=== PATIENT | female | born 1940 | race Caucasian/White ===

== ENCOUNTER → 2023-05-19 | Outpatient (CLI) | payer MEDICARE, SELFPAY ==
--- NOTE | 2023-05-19 | DI.RAD.S_ITS ---
PROCEDURE: XR DEXA AXIAL SKELETON INDICATIONS: OSTEOPOROSIS SCREENING COMPARISON: None. FINDINGS: This blank DEXA report has been sent in error by the PACS system. The correct and complete report will be forthcoming in 1-2 days. Thank you for your patience and understanding. Dictated by: Luis Phelps M.D. on 05/19/2023 at 15:36 Approved by: Luis Phelps M.D. on 05/19/2023 at 15:36
--- NOTE | 2023-05-19 11:43 | DI.DEXA.S_ITS ---
Bone Density Report Name: RYAN VICKERS Age: 82 Sex: Female Ethnicity: White Date of : 1940 Indication: postmenopausal; screening for osteoporosis; Referring Provider: JENAE FREITAS Study: Bone densitometry was performed. Exam Date: May 19, 2023 Accession number: [id number] Bone Density: Region BMD T-score Z-score Classification AP Spine(L1-L4) 1.117 0.6 3.4 Normal Femoral Neck (Left) 0.708 -1.3 1.1 Osteopenia Total Hip (Left) 0.899 -0.4 1.8 Normal Femoral Neck (Right) 0.712 -1.2 1.1 Osteopenia Total Hip (Right) 0.890 -0.4 1.7 Normal Total Hip Mean 0.894 -0.4 1.8 Normal World Health Organization criteria for BMD impression classify patients as: Normal (T-score at or above -1.0), Osteopenia (T-score between -1.0 and -2.5), or Osteoporosis (T-score at or below -2.5). 10-year Fracture Risk(1): Major Osteoporotic Fracture 12% Hip Fracture 4.2% Reported Risk Factors: [place] (), Neck BMD=0.708, BMI=23.1, smoking (1) FRAX(R) Version 3.08. Fracture probability calculated for an untreated patient. Fracture probability may be lower if the patient has received treatment. Impression: The patient has low bone mass, based on the Left Femoral Neck T-score. The patient has an estimated ten-year risk of hip fracture of 4.2% and an estimated ten-year risk of major fracture of 12%, based on the WHO FRAX algorithm. The patient has risk factors, including: smoking. Discussion: BONE DENSITY IS LOW AT ONE OR MORE SKELETAL SITES. THE PATIENT'S BMD AND CLINICAL RISK FACTORS CONTRIBUTE TO THIS PATIENT'S INCREASED RISK OF FRACTURE. This patient's lowest T-score is low at one or more skeletal sites. It meets the World Health Organization's (WHO) criteria for ?low bone mass? (T-score between -1.0 and -2.5). The patient's 10-year risk of hip fracture as calculated by FRAX exceeds the threshold where pharmacological therapy is recommended by the National Osteoporosis Foundation (NOF). However, all treatment decisions require clinical judgment and consideration of individual patient factors, including patient preferences, comorbidities, previous drug use, risk factors not captured in the FRAX model (e.g., frailty, falls, vitamin D deficiency, increased bone turnover, interval significant decline in bone density) and possible under or overestimation of fracture risk by FRAX. The patient should follow a healthful lifestyle (good nutrition with adequate calcium and vitamin D, and appropriate weight-bearing exercise). Follow-Up: Consider a repeat BMD and Vertebral Fracture Assessment (VFA) exam in 2 years or sooner if medically necessary, to reassess this patient's status. Reported by: MARILUZ WALTER M.D. on 05/19/2023 11:51:00 PM.
== END ==
LOC: RAD 11:19
PROVIDERS: PCP Student in an Organized Health Care Education/Training Program; Referring Provider Student in an Organized Health Care Education/Training Program; Visit Provider Student in an Organized Health Care Education/Training Program
DX: M85.852 Other specified disorders of bone density and structure, left thigh (principal); Z78.0 Asymptomatic menopausal state
CPT/HCPCS: 77080

== ENCOUNTER 2023-11-26 13:42 | Observation (INO) | payer MEDICARE, SELFPAY ==
[2023-11-26] VITALS (14 sets, daily range): BP systolic 146–192; BP diastolic 63–90; PULSE 69–94; RESP 14–27; TEMP 35.9–36.6; O2SAT 91–99; BMI 25.7; BMI 24.5
--- NOTE | 2023-11-26 13:52 | ED_ITS ---
HPI - Neuro Symptoms/Deficit General Chief Complaint: Neuro Symptoms/Deficit Stated Complaint: thinks is having a stroke Time Seen by Provider: 11/26/23 13:51 History of Present Illness HPI Narrative: Patient 83-year-old female without significant past medical history presenting today with difficulty word finding. Last known well was around 1:00 p.m.. Has been noticed it as well. No slurring of speech or facial droop. She denies any other focal deficits without numbness tingling or weakness. She is report that she has dizziness regularly has some vertigo she takes meclizine for it. She was experiencing some vertigo that has never really had any speech difficulty. She feels like she is getting better she thinks that she may have had a TIA. She denies any other symptoms including chest pain palpitations fever chills or abdominal pain. Related Data Home Medications Medication Instructions Recorded Confirmed alprazolam 0.5 mg tablet 0.25 - 0.5 mg PO Q6H PRN anxiety 11/26/23 11/26/23 benzonatate 100 mg capsule 200 mg PO 3XD PRN cough 11/26/23 11/26/23 carvedilol 3.125 mg tablet 3.125 mg PO Q12H 11/26/23 11/26/23 estradiol 2 mg tablet 2 mg PO DAILY 11/26/23 11/26/23 levothyroxine 75 mcg tablet 75 mcg PO DAILY 11/26/23 11/26/23 (Synthroid) losartan 25 mg tablet 25 mg PO DAILY 11/26/23 11/26/23 meclizine 25 mg tablet 50 mg PO DAILY PRN dizziness 11/26/23 11/26/23 Allergies Allergy/AdvReac Type Severity Reaction Status Date / Time grass pollen Allergy Verified 11/26/23 15:56 Patient History Social History household members: significant other Smoking Status: Never smoker alcohol intake: never Exam Initial Vital Signs Initial Vital Signs: Vital Signs Temperature 97.8 F 11/26/23 13:45 Pulse Rate 73 11/26/23 13:45 Respiratory Rate 16 11/26/23 13:45 Blood Pressure 192/90 H 11/26/23 13:45 Pulse Oximetry 98 11/26/23 13:45 Oxygen Delivery Method Room Air 11/26/23 13:45 GENERAL: Alert pleasant in 3-year-old female and in no acute distress. HEENT: Head atraumatic,EOMI, pupils reactive, face symmetric, moist mucous membranes CARDIOVASCULAR: Regular rate and rhythm without murmurs, rubs or gallops. RESPIRATORY: Breath sounds equal bilaterally, no wheezes rales or rhonchi. ABDOMEN: Soft, nontender. Normoactive bowel sounds all 4 quadrants. No guarding or rebound. EXTREMITIES: Normal range of motion, no clubbing or edema. Neurovascularly intact NEUROLOGICAL: Alert and oriented x4.Normal gait and speech. Cranial nerves II through XII grossly intact. Good [id number], good wkod-[id number], strength equal bilaterally, no dysarthria or aphasia, sensation in tact to soft touch bilaterally, no visual changes, no facial droop SKIN: Warm, dry, no laceration, no petechiae, no rashes or lesions. Scores ABCD2 Age >= 60 years: yes Initial BP. Either SBP >= 140 or DBP >= 90.: yes Clinical features of the TIA: speech disturbance without weakness Duration of symptoms: 10-59 minutes History of diabetes: no ABCD2 Score: 4 NIH Stroke Scale Level of Conciousness: Alert, keenly responsive Ask month/age: Answers both questions correctly. Open/close eyes, close hand: Performs both tasks correctly Best gaze horizontal: Normal Visual bacon: No visual loss Facial palsy: Normal symetrical movement Left arm drift: No drift for full 10 sec Right arm drift: No drift for full 10 sec Left leg drift: No drift for full 5 sec Right leg drift: No drift for full 5 sec Limb ataxia: Absent Sensory on face/arms/legs: Normal, no sensory loss Best language: No aphasia, normal Dysarthria: Normal Extinction or inattention: No abnormality Total NIH Stroke scale score: 0 Course Orders Ordered: ED Orders 11/26/23 13:48 Complete Blood Count AUTO DIFF Stat Comprehensive Metabolic Panel Stat Ethanol (ETOH) Stat PTT Partial Thromboplastin Junior Stat Prothrombin Time INR Stat Troponin & CK Cardiac Panel Stat 11/26/23 13:[address] angio head and neck Stat 11/26/23 13:59 EKG-12 Lead Stat 11/26/23 14:17 COVID19 -Nasal RAPID Stat 11/26/23 14:27 Urinalysis and Microscopic Stat Urine Drug Screen, Rapid Stat 11/26/23 15:36 MR head/brain wo con Stat 11/27/23 05:00 Basic Metabolic Panel DAILY Complete Blood Count AUTO DIFF DAILY Hemoglobin A1C% w Est Avg Glu Routine Lipid Panel Routine Magnesium DAILY TSH w/ Reflex to FT4 Routine 11/28/23 05:00 Basic Metabolic Panel DAILY Complete Blood Count AUTO DIFF DAILY Magnesium DAILY 11/29/23 05:00 Basic Metabolic Panel DAILY Complete Blood Count AUTO DIFF DAILY Magnesium DAILY Acetaminophen (Acetaminophen 325 Mg Tablet) 650 mg PO Q6H PRN PRN Reason: Fever/Mild Pain (1-3) Naloxone HCl (Naloxone 0.4 Mg/Ml Vial) 0.2 mg IV Q2MIN PRN PRN Reason: Opiate Reversal Discontinued Medications Aspirin (Aspirin 81 Mg Chew Tab) 324 mg PO NOW ONE Stop: 11/26/23 15:37 Last Admin: 11/26/23 15:50 Dose: 324 mg Documented By: HEIDY Vital Signs Vital signs: Vital Signs - 8 hr 11/26/23 13:45 11/26/23 14:29 11/26/23 14:30 Temperature 97.8 F Pulse Rate 73 80 78 Respiratory Rate 16 24 18 Blood Pressure 192/90 H Pulse Oximetry 98 95 99 Oxygen Delivery Method Room Air 11/26/23 14:33 11/26/23 14:33 11/26/23 15:00 Temperature Pulse Rate 77 69 Respiratory Rate 25 H Blood Pressure 183/78 H Pulse Oximetry 98 98 Oxygen Delivery Method 11/26/23 15:01 11/26/23 15:01 11/26/23 15:30 Temperature Pulse Rate 70 70 Respiratory Rate Blood Pressure 169/72 H Pulse Oximetry 98 98 Oxygen Delivery Method 11/26/23 15:30 11/26/23 16:02 11/26/23 16:06 Temperature Pulse Rate 94 H Respiratory Rate 27 H Blood Pressure 171/73 H 171/74 H Pulse Oximetry 91 Oxygen Delivery Method 11/26/23 16:06 11/26/23 16:30 11/26/23 16:30 Temperature Pulse Rate 73 87 Respiratory Rate 14 Blood Pressure 146/65 H Pulse Oximetry 99 96 Oxygen Delivery Method 11/26/23 16:52 Temperature Pulse Rate Respiratory Rate Blood Pressure Pulse Oximetry 96 Oxygen Delivery Method Room Air MDM - Neuro Symptoms/Deficit Lab Data 11/26/23 13:48 11/26/23 13:48 Labs: Lab Results 11/26/23 11/26/23 11/26/23 Range/Units 13:48 14:17 14:27 WBC 6.0 (4.5-11.0) X10^3/uL RBC 3.68 L (4.0-5.2) X10^6/uL Hgb 12.6 (12.0-16.0) g/dL Hct 36.9 (36-46) % MCV 100.2 H (80-100) fL MCH 34.3 H (26-34) PG MCHC 34.2 (30-36) % RDW 13.2 (11.6-14.8) % Plt Count 212 (150-400) X10^3/uL Neut % (Auto) 54.1 (50-75) % Lymph % (Auto) 29.0 (25-40) % [place] % (Auto) 10.8 (3-14) % Eos % (Auto) 5.3 H (2-4) % Baso % (Auto) 0.8 (0-2) % Neut # (Auto) 3200 (7487-9370) /uL Lymph # (Auto) 1700 (1199-7553) /uL [place] # (Auto) 600 (0-900) /uL Eos # (Auto) 300 (0-450) /uL Baso # (Auto) 0 (0-100) /uL PT 10.2 (9.4-12.5) SECONDS INR 0.9 (0.9-1.3) APTT 28 (25.1-36.5) SECONDS Sodium 131 L (137-145) mmol/L Potassium 4.1 (3.4-5.1) mmol/L Chloride 97 L (98-107) mmol/L Carbon Dioxide 25 (22-32) mmol/L BUN 11 (7-17) mg/dL Creatinine 0.66 (0.52-1.04) mg/dL Estimated GFR > 60 (>60) mL/min BUN/Creatinine Ratio 16.7 (6-22) Glucose 92 (80-110) mg/dL Calcium 9.1 (8.4-10.2) mg/dL Total Bilirubin 0.5 (0.2-1.3) mg/dL AST 34 (14-36) IU/L ALT 23 (<35) IU/L Alkaline Phosphatase 69 (38-126) U/L Total Creatine Kinase 34 (30-135) U/L Troponin I < 0.012 (0.01-0.034) ng/mL Total Protein 7.1 (6.3-8.2) g/dL Albumin 4.4 (3.5-5.0) g/dL Globulin 2.7 (1.7-4.1) g/dL Albumin/Globulin Ratio 1.6 (1.0-2.8) Urine Color Yellow Urine Appearance Clear Urine pH 5.0 (4.5-8.0) Ur Specific [place] <=1.005 (1.000-1.035) Urine Protein Negative (Negative) Urine Glucose (UA) Negative (Negative) g/dL Urine Ketones Negative (NEGATIVE) Urine Occult Blood Negative (Negative) Urine Nitrate Negative (Negative) Urine Bilirubin Negative (NEGATIVE) Urine Urobilinogen 0.2 (0.2) E.U./dL Ur Leukocyte Esterase Negative (NEGATIVE) Urine RBC None seen (0-5/HPF) Urine WBC None seen (0-5/HPF) Ur Squamous Epith Cells None seen (0-5/HPF) Urine Bacteria None seen (None) Ur Culture Indicated? Cult not indicated Vol Urine Centrifuged 10ml (spun) U Opiates 300ng/mL cut Negative (Negative) Ur Oxycodone Screen Negative (Negative) Urine Methadone Screen Negative (Negative) Ur Barbiturates Screen Negative (Negative) U Tricyclic Antidepress Negative (Negative) Ur Phencyclidine Scrn Negative (Negative) Ur Amphetamines Screen Negative (Negative) U Methamphetamines Scrn Negative (Negative) Ur MDMA Scrn (Ecstasy) Negative (Negative) U Benzodiazepines Scrn Negative (Negative) Urine Cocaine Screen Negative (Negative) U Marijuana (THC) Screen Negative (Negative) Urine Specific [place] (Normal) Ethyl Alcohol < 10 ( - 10) mg/dL Ur Creatinine (Normal) SARS-CoV-2 (PCR) Negative (Negative) 11/26/23 Range/Units 14:27 WBC (4.5-11.0) X10^3/uL RBC (4.0-5.2) X10^6/uL Hgb (12.0-16.0) g/dL Hct (36-46) % MCV (80-100) fL MCH (26-34) PG MCHC (30-36) % RDW (11.6-14.8) % Plt Count (150-400) X10^3/uL Neut % (Auto) (50-75) % Lymph % (Auto) (25-40) % [place] % (Auto) (3-14) % Eos % (Auto) (2-4) % Baso % (Auto) (0-2) % Neut # (Auto) (3850-6021) /uL Lymph # (Auto) (1075-8558) /uL [place] # (Auto) (0-900) /uL Eos # (Auto) (0-450) /uL Baso # (Auto) (0-100) /uL PT (9.4-12.5) SECONDS INR (0.9-1.3) APTT (25.1-36.5) SECONDS Sodium (137-145) mmol/L Potassium (3.4-5.1) mmol/L Chloride (98-107) mmol/L Carbon Dioxide (22-32) mmol/L BUN (7-17) mg/dL Creatinine (0.52-1.04) mg/dL Estimated GFR (>60) mL/min BUN/Creatinine Ratio (6-22) Glucose (80-110) mg/dL Calcium (8.4-10.2) mg/dL Total Bilirubin (0.2-1.3) mg/dL AST (14-36) IU/L ALT (<35) IU/L Alkaline Phosphatase (38-126) U/L Total Creatine Kinase (30-135) U/L Troponin I (0.01-0.034) ng/mL Total Protein (6.3-8.2) g/dL Albumin (3.5-5.0) g/dL Globulin (1.7-4.1) g/dL Albumin/Globulin Ratio (1.0-2.8) Urine Color Urine Appearance Urine pH Normal (4.5-8.0) Ur Specific [place] (1.000-1.035) Urine Protein (Negative) Urine Glucose (UA) (Negative) g/dL Urine Ketones (NEGATIVE) Urine Occult Blood (Negative) Urine Nitrate (Negative) Urine Bilirubin (NEGATIVE) Urine Urobilinogen (0.2) E.U./dL Ur Leukocyte Esterase (NEGATIVE) Urine RBC (0-5/HPF) Urine WBC (0-5/HPF) Ur Squamous Epith Cells (0-5/HPF) Urine Bacteria (None) Ur Culture Indicated? Vol Urine Centrifuged U Opiates 300ng/mL cut (Negative) Ur Oxycodone Screen (Negative) Urine Methadone Screen (Negative) Ur Barbiturates Screen (Negative) U Tricyclic Antidepress (Negative) Ur Phencyclidine Scrn (Negative) Ur Amphetamines Screen (Negative) U Methamphetamines Scrn (Negative) Ur MDMA Scrn (Ecstasy) (Negative) U Benzodiazepines Scrn (Negative) Urine Cocaine Screen (Negative) U Marijuana (THC) Screen (Negative) Urine Specific [place] Normal (Normal) Ethyl Alcohol ( - 10) mg/dL Ur Creatinine Normal (Normal) SARS-CoV-2 (PCR) (Negative) Imaging Data CT scan - head: Radiologist's Impression: PROCEDURE: CT STROKE INDICATIONS: difficulty speaking TECHNIQUE: Noncontrast 4.5 mm thick angled axial sections acquired from the foramen magnum to the vertex, with coronal reformats. For radiation dose reduction, the following was used: automated exposure control, adjustment of mA and/or kV according to patient size. COMPARISON: None. FINDINGS: Image quality: Diagnostic. CSF spaces: Basal cisterns are patent. No extra-axial fluid collections. The ventricles are symmetric in size and shape. Brain: No intracranial bleeds or masses. There is cerebral volume loss for age, with resultant ventricular and sulcal prominence. There are periventricular and deep white matter chronic small vessel ischemic changes. There is intracranial internal carotid artery atherosclerosis. Skull and face: Calvarium and visualized facial bones appear intact, without suspicious lesions. Sinuses: Visualized sinuses and mastoids are clear. IMPRESSION: No acute intracranial hemorrhage is seen. No acute intracranial pathology. Note: Case discussed by telephone with Dr. Pepe at 2:10 p.m. [place] time on November 26, 2023. This study fulfills neurological imaging criteria for inclusion or exclusion of acute stroke therapies based on available published neurological guidelines. Dictated by: Lyndon Chavarria M.D. on 11/26/2023 at 13:09 CTA - brain/neck: Radiologist's Impression: PROCEDURE: CT ANGIO HEAD AND NECK INDICATIONS: difficulty speech TECHNIQUE: After the administration of intravenous contrast, 1 mm thick sections acquired from the aortic arch through the [place]. 3-dimensional onzbnzb-wszaebkpm-pnozlqfjcq (MIP) and/or volume rendering reformats were acquired of the central intracranial vasculature and neck separately. For radiation dose reduction, the following was used: automated exposure control, adjustment of mA and/or kV according to patient size. COMPARISON: [facility], CT, CT STROKE, 11/26/2023, 14:02. FINDINGS: Image quality: Diagnostic. BRAIN: CSF spaces: Ventricles are normal in size and shape. Basal cisterns are patent. No extra-axial fluid collections. Brain: No significant abnormality of the brain can be seen. Skull and face: Calvarium and facial bones appear intact, without suspicious lesions. Orbits appear normal. Sinuses: Sinuses and mastoids are clear. HEAD CT ANGIOGRAPHY: Anterior circulation: Intracranial internal carotid arteries are normal in size and flow. The flow within the paired anterior cerebral arteries is normal and symmetric. The flow within the middle cerebral arteries is normal and symmetric. The anterior communicating artery is seen. No aneurysms are seen. Posterior circulation: Visualized portions of the vertebral arteries demonstrate normal caliber, and join to form a normal appearing basilar artery. Flow within the posterior cerebral arteries is normal and symmetric. No aneurysms are seen. NECK CT ANGIOGRAPHY: Carotid system: The great vessels demonstrate a conventional anatomy as they arise from the aortic arch. The origins of the common carotid arteries appear patent. The common carotid arteries demonstrate normal caliber and courses. The bifurcation regions are both widely patent. The internal carotid arteries demonstrate normal calibers and courses. Posterior circulation: The origins of the vertebral arteries both appear widely patent. The more superior extracranial portions of both vertebral arteries also demonstrate normal courses and calibers. They join to form a normal appearing basilar artery. Soft tissues: Visualized neck soft tissues demonstrate no suspicious abnormalities. Bones: No suspicious bony lesions. Visualized cervical spine appears normally aligned. IMPRESSION: No significant intracranial arterial abnormality is seen. No significant abnormality is seen within the arteries of the neck. Any quantitative measurements of stenosis were performed using NASCET criteria. Dictated by: Braulio Arevalo M.D. on 11/26/2023 at 14:23 ECG Data Attestation: I personally reviewed and interpreted this ECG as follows: Prior ECG tracings: not available for review Interpretation: Normal sinus rhythm rate 78 [place] interval 172 QRS 70 QTC 440 no ischemic changes no priors to compare MDM Narrative Medical decision making narrative: Patient 83-year-old female presents today concern for TIA versus CVA. She is having some speech difficulty which I do appreciate on exam she is able to answer all my questions. NIH stroke scale of 0 Initial ABCD2 score of 4. Patient's symptoms are improving she has therefore not a candidate for TNK Blood work has been reviewed no significant leukocytosis or anemia, sodium is 131 potassium 4.1 chloride 97 carbon dioxide 25 BUN 11 creatinine 0.6 glucose 92, bilirubin 0.5 AST 34 ALT [address] imaging reviewed no acute large vessel occlusion or intracranial hemorrhage noted EKG reviewed as above Patient's symptoms are improved she says that she is overall feeling significantly better. Symptoms lasted for an hour. Definitely reports having trouble remembering passwords and difficulty speaking or has been she was not getting right words out. Concern is for a TIA. She has an elevated ABCD2 score. She was given an aspirin Dr. Larson accepts patient [facility] Stroke Severity Scale (-SSS) from [facility] on 11/26/2023 All calculations should be rechecked by clinician prior to use RESULT SUMMARY: 0 points LVO and NIHSS >=5 less likely. INPUTS: Conjugate gaze deviation ?> 0 = No Ask patient age and current month ?> 0 = Both correct Ask patient to close eyes and open/close hand ?> 0 = Follows both commands Instruct patient to hold arm (either or both) up for 10 seconds ?> 0 = Can do Discharge Plan Departure Patient Disposition: Admitted as Observation Clinical Impression: Transient cerebral ischemia Admit Date/Time: 11/26/23 16:59 Admit Provider: Landon Larson
[2023-11-26 14:12] LABS: Add Manual Diff / Slide Review NO; Basophils Absolute Auto 0 /uL (0-100); Basophils Percent Auto 0.8 % (0-2); Eosinophils Absolute Auto 300 /uL (0-450); Eosinophils Percent Auto 5.3 % (2-4); Hematocrit 36.9 % (36-46); Hemoglobin 12.6 g/dL (12.0-16.0); Lymphocytes Absolute Auto 1700 /uL (1100-4500); Mean Corpuscular HGB Conc 34.2 % (30-36); Mean Corpuscular Hemoglobin 34.3 PG (26-34); Mean Corpuscular Volume 100.2 fL (80-100); Monocytes Absolute Auto 600 /uL (0-900); Monocytes Percent Auto 10.8 % (3-14); Neutrophils Absolute Auto 3200 /uL (1500-7000); Neutrophils Percent Auto 54.1 % (50-75); Platelet Count 212 X10^3/uL (150-400); Red Blood Cell Count 3.68 X10^6/uL (4.0-5.2); Red Cell Distribution Width 13.2 % (11.6-14.8)
[2023-11-26 14:13] LABS: INR 0.9 (0.9-1.3); Prothrombin Time 10.2 SECONDS (9.4-12.5)
--- NOTE | 2023-11-26 14:13 | PC.NURSE ---
patient was working on her computer and then suddenly had trouble finding words. She is also dizzy. She normally has dizzyness in the morning which resolves over time. She also take meclizine for vertigo but says that this is worse than normal vertigo. Her word searching has improved.
[2023-11-26 14:16] LABS: PTT Partial Thromboplastin Tim 28 SECONDS (25.1-36.5)
[2023-11-26 14:19] LABS: Alanine Aminotransferase 23 IU/L (<35); Albumin 4.4 g/dL (3.5-5.0); Albumin Globulin Ratio 1.6 (1.0-2.8); Alkaline Phosphatase 69 U/L (38-126); Aspartate Aminotransferase 34 IU/L (14-36); BUN Creatinine Ratio 16.7 (6-22); Bilirubin Total 0.5 mg/dL (0.2-1.3); Blood Urea Nitrogen 11 mg/dL (7-17); Calcium 9.1 mg/dL (8.4-10.2); Carbon Dioxide 25 mmol/L (22-32); Chloride 97 mmol/L (98-107); Creatine Kinase 34 U/L (30-135); Estimated Glomerular Filt Rate > 60 mL/min (>60); Ethanol (ETOH) < 10 mg/dL; Globulin 2.7 g/dL (1.7-4.1); Glucose 92 mg/dL (80-110); HEMOLYSIS 23 (0-50); Potassium 4.1 mmol/L (3.4-5.1); Sodium 131 mmol/L (137-145); Total Protein 7.1 g/dL (6.3-8.2)
[2023-11-26 14:29] LABS: Troponin I < 0.012 ng/mL (0.01-0.034)
[2023-11-26 14:38] LABS: UR Morphine/Opiate cutoff 300 Negative (Negative); Ur Creatinine Normal (Normal); Ur Specific Gravity Normal (Normal); Urine Amphetamines Negative (Negative); Urine Barbiturates Negative (Negative); Urine Benzodiazepines Negative (Negative); Urine Cocaine Negative (Negative); Urine MDMA Negative (Negative); Urine Methadone Negative (Negative); Urine Methamphetamines Negative (Negative); Urine Oxycodone Negative (Negative); Urine Phencyclidine Negative (Negative); Urine Tetrahydrocannabinol Negative (Negative); Urine Tricyclic Antidepressant Negative (Negative); Urine pH Normal (Normal)
--- NOTE | 2023-11-26 14:42 | PC.NURSE ---
Patient complains of kliedoscope like vision changes that comes and goes and usually doesn't come back. Today she states that today it has come back more than once which is not normal. She states having a dx of trigeminal neuralgia and also an issue with her eye that contributes to her vision changes. She states that she does not have a headache but does have lightheadedness.
[2023-11-26 14:43] LABS: Appearance Urine UA CLEAR; Bilirubin Urine UA NEGATIVE (NEGATIVE); Color Urine UA YELLOW; Glucose Urine UA NEGATIVE (Negative); Ketones Urine UA NEGATIVE (NEGATIVE); Leukocyte Esterase Urine UA NEGATIVE (NEGATIVE); Nitrite Urine UA NEGATIVE (Negative); Occult Blood Urine UA NEGATIVE (Negative); Protein Urine UA NEGATIVE (Negative); Specific Gravity Urine UA <=1.005 (1.000-1.035); Urobilinogen Urine UA 0.2 E.U./dL (0.2)
[2023-11-26 14:46] LABS: Urine Volume 10mL (spun)
[2023-11-26 14:47] LABS: Bacteria Urine None Seen; Culture Indicated Urine Cult Not Indicated; RBC Urine None Seen (0-5/HPF); Squamous Epithelial Cell Urine None Seen (0-5/HPF); WBC Urine None Seen (0-5/HPF)
[2023-11-26 15:04] LABS: COVID19 -Nasal RAPID Negative (Negative)
--- NOTE | 2023-11-26 15:36 | DI.MRI.S_ITS ---
PROCEDURE: MR HEAD/BRAIN WO CON INDICATIONS: tia TECHNIQUE: Noncontrast axial T1 spin echo, axial T2 fast spin echo, sagittal and axial FLAIR, coronal T2 fast spin echo, axial gradient echo, axial diffusion and ADC through the brain. COMPARISON: CT noncontrast 11/26/2023, CT angio head and neck 11/26/2023. FINDINGS: Image quality: Diagnostic CSF Spaces: Basal cisterns are patent. No extra-axial fluid collections. Ventricles are normal in size and shape. Brain: No intracranial masses or hemorrhage. [place]/white matter interface is normal. Brainstem appears normal. Diffusion-weighted images demonstrate no acute infarct. No chronic ischemic insults. Normal intravascular flow voids are present. Skull and face: Calvarium has normal marrow signal. Orbits appear normal. Sinuses: Sinuses and mastoids are clear. IMPRESSION: No acute intracranial abnormality. Approved by: Izzy Day M.D.,Ph.D. on 11/26/2023 at 20:37
[2023-11-26] MEDS: ASPIRIN 81 MG CHEW TAB 324 MG PO (15:50)
--- NOTE | 2023-11-26 15:54 | PC.NURSE ---
patient states that when she live on the [facility] she took 3 different allergy shots. She was alergic to 6 different grasses and 2 trees. Since living in [place] has not had any issues.
--- NOTE | 2023-11-26 17:30 | P.HP_ITS ---
History of Present Illness History of Present Illness Date Patient Seen: 11/26/23 Time Patient Seen: 17:31 Chief complaint: thinks is having a stroke Narrative: 83 F with PMH of hypothyroidism, HTN, anxiety who presents after an episode of word finding dificulty, possibly slurred speech and left arm and leg tingling. Symptoms resolved quite quickly initially, but patient was concerned enough about her symptoms for a possible stroke so she came to the emergency room. Symptoms started around 12:30 pm, lasted a few minutes in total she thinks. She does note some palpitations occasionally at night, but denies recent fever chills, shortness of breath, nausea, vomiting. She does take estradiol, and has for many years. Also drinks a beer or more a day with occasional split bottle of wine as well. No prior shaking or withdrawal symptoms previously, she has been working to cut down. BP she states at home will run between 130 - 170. Had recent lab work done with new PCP with normal A1c, lipids, and TSH about a week ago. In the ER, patient was hypertensive, otherwise unremarkable vitals. Initial CT head and CT stroke protocol were unremarkable. Her symptoms have resolved at this time. Admitted for further monitoring and evaluation of TIA vs CVA. MRI pending this evening. [facility] Medical History (Updated 11/26/23 @ 18:00 by Landon Lasron DO) Hypothyroidism HTN (hypertension) Surgical History (Updated 11/26/23 @ 18:00 by Landon Larson DO) History of bilateral salpingo-oophorectomy (BSO) S/P DOROTEO (total abdominal hysterectomy) Social History (Updated 11/26/23 @ 18:01 by Landon Larson DO) household members: significant other Smoking Status: Former smoker alcohol intake: current substance use type: does not use Meds Home Medications and Allergies Home Medications Medication Instructions Recorded Confirmed Type alprazolam 0.5 mg tablet 0.25 - 0.5 mg PO Q6H PRN anxiety 11/26/23 11/26/23 History benzonatate 100 mg capsule 200 mg PO 3XD PRN cough 11/26/23 11/26/23 History carvedilol 3.125 mg tablet 3.125 mg PO Q12H 11/26/23 11/26/23 History estradiol 2 mg tablet 2 mg PO DAILY 11/26/23 11/26/23 History levothyroxine 75 mcg tablet 75 mcg PO DAILY 11/26/23 11/26/23 History (Synthroid) losartan 25 mg tablet 25 mg PO DAILY 11/26/23 11/26/23 History meclizine 25 mg tablet 50 mg PO DAILY PRN dizziness 11/26/23 11/26/23 History Allergies Allergy/AdvReac Type Severity Reaction Status Date / Time grass pollen Allergy Verified 11/26/23 15:56 Review of Systems Review of Systems Narrative: All other systems reviewed with the patient and are negative unless otherwise stated. Exam Vital Signs (past 8 hours): - 11/26/23 13:45 11/26/23 14:29 11/26/23 14:30 Temperature 97.8 F Pulse Rate 73 80 78 Respiratory Rate 16 24 18 Blood Pressure 192/90 H Pulse Oximetry 98 95 99 Oxygen Delivery Method Room Air 11/26/23 14:33 11/26/23 14:33 11/26/23 15:00 Temperature Pulse Rate 77 69 Respiratory Rate 25 H Blood Pressure 183/78 H Pulse Oximetry 98 98 Oxygen Delivery Method 11/26/23 15:01 11/26/23 15:01 11/26/23 15:30 Temperature Pulse Rate 70 70 Respiratory Rate Blood Pressure 169/72 H Pulse Oximetry 98 98 Oxygen Delivery Method 11/26/23 15:30 11/26/23 16:02 11/26/23 16:06 Temperature Pulse Rate 94 H Respiratory Rate 27 H Blood Pressure 171/73 H 171/74 H Pulse Oximetry 91 Oxygen Delivery Method 11/26/23 16:06 11/26/23 16:30 11/26/23 16:30 Temperature Pulse Rate 73 87 Respiratory Rate 14 Blood Pressure 146/65 H Pulse Oximetry 99 96 Oxygen Delivery Method 11/26/23 16:52 11/26/23 17:00 Temperature 97.1 F L Pulse Rate 85 Respiratory Rate 16 Blood Pressure 148/63 H Pulse Oximetry 96 98 Oxygen Delivery Method Room Air Oxygen Delivery Method Room Air Narrative Exam Narrative: General:? Patient is well developed and well nourished, in no distress at this time. HEENT:? Normocephalic, atraumatic, extraocular muscles intact, oral pharynx is clear and mucous membranes are moist. Neck: supple and symmetric, trachea is midline, no cervical adenopathy. Chest:? Normal AP diameter and contour without kyphoscoliosis, no tachypnea, equal chest rise bilaterally. Cardio:?RRR Musculoskeletal:? Muscle strength and tone are equal within normal limits, no deformity. Extremities: No edema or joint effusions. Neuro:? Alert and orientated x3,? sensation to touch intact in all extremities Psych:? Patient has a well-kept appearance, appropriate affect, mental status attitude thought context and judgment are appropriate for age. Objective ECG Impression: NSR, no acute ischemia. Labs 11/26/23 13:48 11/26/23 13:48 Labs: Laboratory Results - last 24 hr 11/26/23 11/26/23 11/26/23 13:48 14:17 14:27 WBC 6.0 RBC 3.68 L Hgb 12.6 Hct 36.9 MCV 100.2 H MCH 34.3 H MCHC 34.2 RDW 13.2 Plt Count 212 Neut % (Auto) 54.1 Lymph % (Auto) 29.0 [place] % (Auto) 10.8 Eos % (Auto) 5.3 H Baso % (Auto) 0.8 Neut # (Auto) 3200 Lymph # (Auto) 1700 [place] # (Auto) 600 Eos # (Auto) 300 Baso # (Auto) 0 PT 10.2 INR 0.9 APTT 28 Sodium 131 L Potassium 4.1 Chloride 97 L Carbon Dioxide 25 BUN 11 Creatinine 0.66 Estimated GFR > 60 BUN/Creatinine Ratio 16.7 Glucose 92 Calcium 9.1 Total Bilirubin 0.5 AST 34 ALT 23 Alkaline Phosphatase 69 Total Creatine Kinase 34 Troponin I < 0.012 Total Protein 7.1 Albumin 4.4 Globulin 2.7 Albumin/Globulin Ratio 1.6 Urine Color Yellow Urine Appearance Clear Urine pH 5.0 Ur Specific [place] <=1.005 Urine Protein Negative Urine Glucose (UA) Negative Urine Ketones Negative Urine Occult Blood Negative Urine Nitrate Negative Urine Bilirubin Negative Urine Urobilinogen 0.2 Ur Leukocyte Esterase Negative Urine RBC None seen Urine WBC None seen Ur Squamous Epith Cells None seen Urine Bacteria None seen Ur Culture Indicated? Cult not indicated Vol Urine Centrifuged 10ml (spun) U Opiates 300ng/mL cut Negative Ur Oxycodone Screen Negative Urine Methadone Screen Negative Ur Barbiturates Screen Negative U Tricyclic Antidepress Negative Ur Phencyclidine Scrn Negative Ur Amphetamines Screen Negative U Methamphetamines Scrn Negative Ur MDMA Scrn (Ecstasy) Negative U Benzodiazepines Scrn Negative Urine Cocaine Screen Negative U Marijuana (THC) Screen Negative Urine Specific [place] Ethyl Alcohol < 10 Ur Creatinine SARS-CoV-2 (PCR) Negative 11/26/23 14:27 WBC RBC Hgb Hct MCV MCH MCHC RDW Plt Count Neut % (Auto) Lymph % (Auto) [place] % (Auto) Eos % (Auto) Baso % (Auto) Neut # (Auto) Lymph # (Auto) [place] # (Auto) Eos # (Auto) Baso # (Auto) PT INR APTT Sodium Potassium Chloride Carbon Dioxide BUN Creatinine Estimated GFR BUN/Creatinine Ratio Glucose Calcium Total Bilirubin AST ALT Alkaline Phosphatase Total Creatine Kinase Troponin I Total Protein Albumin Globulin Albumin/Globulin Ratio Urine Color Urine Appearance Urine pH Normal Ur Specific [place] Urine Protein Urine Glucose (UA) Urine Ketones Urine Occult Blood Urine Nitrate Urine Bilirubin Urine Urobilinogen Ur Leukocyte Esterase Urine RBC Urine WBC Ur Squamous Epith Cells Urine Bacteria Ur Culture Indicated? Vol Urine Centrifuged U Opiates 300ng/mL cut Ur Oxycodone Screen Urine Methadone Screen Ur Barbiturates Screen U Tricyclic Antidepress Ur Phencyclidine Scrn Ur Amphetamines Screen U Methamphetamines Scrn Ur MDMA Scrn (Ecstasy) U Benzodiazepines Scrn Urine Cocaine Screen U Marijuana (THC) Screen Urine Specific [place] Normal Ethyl Alcohol Ur Creatinine Normal SARS-CoV-2 (PCR) Assessment & Plan Assessment & Plan narrative: 1. TIA - presume TIA based on resolution of symptoms. - MRI ordered, pending. Will affect need for plavix given low NIH and low ABCD2 score, so will proceed with study. - continue tele overnight to monitor for possible afib. - no need for PT/OT eval at this time as back to baseline unless new symptoms overnight - ABCD2 score of 3. Continue asa only, atorvastatin started. - TTE ordered. - patient is aware of risk of estradiol, she is not interested in stopping, she states she will try to reduce to 1 mg from 2 mg. - TSH, A1c, Lipids all done by PCP within the last month and unremarkable, no need for repeat testing here. 2. HTN - continue home losartan and coreg, allow for permissive HTN. Will likely need improved BP control as an outpatient. 3. hypothyroidism, chronic - TSH normal with PCP recently, no overt symptoms. Continue patient's home levothyroxine without change. Code: Full, surrogate decision maker is Aubrey DVT: Lovenox daily I have utilized all available immediate resources to obtain, update, or review the patient's current medications. Dispo: patient admitted under observation status. Suspect discharge home tomorrow pending above evaluation. Additional history obtained via discussions with the ER provider. These discussions contributed to the creation of the above assessment and plan. I have reviewed patient's presenting documentation, labs, and imaging personally.
--- NOTE | 2023-11-26 17:32 | DI.ECHO.S_ITS ---
[place] [facility]---------+ [facility] : : [address] : : [place] : : [id number] : : Phone: [phone] Echocardiogram Report + + :Name: RAYN VICKERS Study Date: 11/27/2023 Height: 61 in : :[facility] ReadingLocation: Weight: 130 lb : : Gender: Female BSA: 1.6 m2 : :: 1940 Age: 83 yrs BP: 158/69 mmHg: :Reason For Study: TIA : :Ordering Physician: BRETT, : :SANDRA GRANDE Performed By: Niya Kimball : :Referring: SANDRA WEST : + + Interpretation Summary The patient was in sinus rhythm with heart rates between 68-78 bpm during the exam. The left ventricular cavity is small. The ejection fraction is estimated to be 65-70%. There is no obvious LV thrombus. Cannot rule out subtle mid inferior lateral wall hypokinesis. The right ventricle is normal in size and function. There is mild aortic regurgitation. The IVC is of normal diameter and collapses greater than 50% with a sniff. This suggests a low right atrial pressure of 3 mm Hg. No significant plaque seen in the aortic arch or proximal ascending aorta. Procedure: A two-dimensional transthoracic echocardiogram with color flow and Doppler was performed. The study quality was technically adequate. There is no prior echocardiogram noted for this patient. The patient was in sinus rhythm with heart rates between 68-78 bpm during the exam. Left Ventricle: The left ventricular cavity is small. Proximal septal thickening is noted. There is no echo evidence for significant left ventricular outflow tract obstruction. There is no thrombus. The ejection fraction is estimated to be 65-70%. Cannot rule out subtle mid inferior lateral wall hypokinesis. No significant diastolic dysfunction. Right Ventricle: The right ventricle is normal in size and function. Atria: The left atrial size is normal. Right atrial size is normal. There is no Doppler evidence for an interatrial shunt. Mitral Valve: There is mild mitral annular calcification. There is trace mitral regurgitation. Aortic Valve: The aortic valve is trileaflet. The aortic valve is slightly calcified. There is no aortic valve stenosis. There is mild aortic regurgitation. Tricuspid Valve: The tricuspid valve is normal in structure and function. There is trace tricuspid regurgitation. Pulmonary artery pressures cannot be estimated because of the lack of a measurable TR jet velocity. Pulmonic Valve: The pulmonic valve leaflets are thin and pliable; valve motion is normal. There is trace pulmonic regurgitation. Great Vessels: The aortic root is normal size. The dimensions of the ascending aorta are normal. The IVC is of normal diameter and collapses greater than 50% with a sniff. This suggests a low right atrial pressure of 3 mm Hg. Pericardium/ Pleura There is no pericardial effusion. There is an anterior echo-free space consistent with a fat pad. There is no pleural effusion. MMode/2D Measurements & Calculations LVIDd: 3.8 cm LVOT diam: 1.9 cm LVIDs: 2.4 cm Ao root diam: 3.1 cm FS: 35.4 % asc Aorta Diam: 3.5 cm IVSd: 1.0 cm Ao Arch Diam (Prox Trans): 2.4 cm LVPWd: 0.93 cm LV [place]. diameter/BSA (cm/m^2): 2.4 LV sys. diameter/BSA (cm/m^2): 1.5 LA A2 area: 14.4 cm2 RA long axis: 4.0 cm LA A4 area: 14.0 cm2 RA area: 10.6 cm2 LA length (vol): 4.9 cm RA vol: 23.5 ml LA vol: 35.3 ml RA : 14.9 ml/m2 LA vol index: 22.4 ml/m2 IVC diam: 1.4 cm RVD1 (basal): 3.3 cm RVD2 (mid): 2.5 cm TAPSE: 2.4 cm Doppler Measurements & Calculations Ao V2 max: 130.6 cm/sec LVOT Max Hang: 105.1 cm/sec Ao V2 mean: 91.6 cm/sec LV V1 max P.4 mmHg Ao max P.8 mmHg LV V1 VTI: 23.6 cm Ao mean P.7 mmHg DANIEL(I,D): 2.4 cm2 Ao V2 VTI: 28.2 cm DANIEL(V,D): 2.3 cm2 sev ratio: 0.83 DANIEL indexed to BSA (cm^2/m^2): 1.5 MV E max hang: 74.6 cm/sec PA V2 max: 90.4 cm/sec MV A max hang: 72.1 cm/sec PA V2 mean: 65.3 cm/sec MV E/A: 1.0 PA mean P.9 mmHg Med Peak E' Hang: 5.7 cm/sec PA pr(Accel): 27.6 mmHg E/E' med: 13.1 Lat Peak E' Hang: 7.2 cm/sec E/E' lat: 10.4 E/e' average: 11.7 MV dec time: 0.28 sec SV(LVOT): 66.7 ml Reading Physician:12:01 PM
--- NOTE | 2023-11-26 17:32 | PC.NURSE ---
Arrived from ED at 1650 A/O, demoes discomfort at this time. SL RAC intact, Scheduled for MRI @ 1800 Oriented to room & call system, Call light w/in reach, pt calls appropriately for needs. Continue w/plan of care.
[2023-11-26] MEDS: ACETAMINOPHEN 325 MG TABLET 650 MG PO (20:04)
[2023-11-26] MEDS: ATORVASTATIN 20 MG TABLET 40 MG PO (20:04)
[2023-11-26] MEDS: SODIUM CHLORIDE 0.9% FLUSH 10 ML IV (20:40)
[2023-11-26] MEDS: ALPRAZolam 0.25 MG TABLET 0.5 MG PO (21:24)
[2023-11-27] VITALS: BP 149/74; PULSE 69; RESP 16; TEMP 35.8; O2SAT 95
[2023-11-27 04:00] VITALS: BP 162/68; PULSE 69; RESP 16; TEMP 36.4; O2SAT 96
[2023-11-27] MEDS: LEVOTHYROXINE 75 MCG TABLET PO (05:45)
[2023-11-27 06:03] LABS: Add Manual Diff / Slide Review NO; Basophils Absolute Auto 100 /uL (0-100); Basophils Percent Auto 1.1 % (0-2); Eosinophils Absolute Auto 300 /uL (0-450); Eosinophils Percent Auto 6.5 % (2-4); Hematocrit 36.5 % (36-46); Hemoglobin 12.5 g/dL (12.0-16.0); Lymphocytes Absolute Auto 1400 /uL (1100-4500); Lymphocytes Percent Auto 29.3 % (25-40); Mean Corpuscular HGB Conc 34.2 % (30-36); Mean Corpuscular Hemoglobin 34.5 PG (26-34); Monocytes Absolute Auto 500 /uL (0-900); Monocytes Percent Auto 10.5 % (3-14); Neutrophils Absolute Auto 2400 /uL (1500-7000); Neutrophils Percent Auto 52.6 % (50-75); Platelet Count 188 X10^3/uL (150-400); Red Blood Cell Count 3.61 X10^6/uL (4.0-5.2); Red Cell Distribution Width 13.5 % (11.6-14.8); White Blood Cell Count 4.6 X10^3/uL (4.5-11.0)
[2023-11-27 06:31] LABS: BUN Creatinine Ratio 15.3 (6-22); Blood Urea Nitrogen 9 mg/dL (7-17); Calcium 8.7 mg/dL (8.4-10.2); Carbon Dioxide 27 mmol/L (22-32); Chloride 100 mmol/L (98-107); Estimated Glomerular Filt Rate > 60 mL/min (>60); Glucose 106 mg/dL (80-110); HEMOLYSIS < 15 (0-50); Magnesium 1.7 mg/dL (1.6-2.3); Sodium 133 mmol/L (137-145)
[2023-11-27 08:00] VITALS: BP 159/62; PULSE 66; RESP 16; RESP 18; TEMP 36.2; O2SAT 95; O2SAT 98
[2023-11-27] MEDS: ASPIRIN EC 81 MG TABLET PO (08:07)
--- NOTE | 2023-11-27 11:00 | P.DS_ITS ---
History of Present Illness History of Present Illness Date Patient Seen: 11/27/23 Time Patient Seen: 11:00 Chief complaint: thinks is having a stroke Narrative: 83 F with PMH of hypothyroidism, HTN, anxiety who presents after an episode of word finding dificulty, possibly slurred speech and left arm and leg tingling. Symptoms resolved quite quickly initially, but patient was concerned enough about her symptoms for a possible stroke so she came to the emergency room. Symptoms started around 12:30 pm, lasted a few minutes in total she thinks. She does note some palpitations occasionally at night, but denies recent fever chills, shortness of breath, nausea, vomiting. She does take estradiol, and has for many years. Also drinks a beer or more a day with occasional split bottle of wine as well. No prior shaking or withdrawal symptoms previously, she has been working to cut down. BP she states at home will run between 130 - 170. Had recent lab work done with new PCP with normal A1c, lipids, and TSH about a week ago. In the ER, patient was hypertensive, otherwise unremarkable vitals. Initial CT head and CT stroke protocol were unremarkable. Her symptoms have resolved at this time. Admitted for further monitoring and evaluation of TIA vs CVA. MRI pending this evening. Discharge Providers Provider Date of admission: 11/26/23 16:59 Discharge Date: 11/27/23 Primary care physician: Henrietta House PA-C Discharge provider: Landon Larson DO Summary Hospital Course Discharge Diagnosis: 1. TIA 2. HTN 3. hypothyroidism, chronic Hospital Course: This is an 83 year old female who presented after an episode of word finding difficulties and numbness. MRI was negative. Echocardiogram was unremarkable with no evidence of PFO. She was started on aspirin and statin therapy for presumed TIA. ABCD2 score was 3. She was counselled on continued systemic hormone therapy but did not wish to stop therapy at this time. She was mildly hypertensive, though improved with resumption of her home medications. Continued outpatient follow up for her BP is recommended with primary care. She was not assessed by therapies as she had returned to baseline prior to admission, and had no ongoing symptoms. Telemetry monitoring was also unremarkable with no evidence for atrial fibrillation. Consider holter monitor with primary care for further evaluation. Time Spent with Patient Time spent: Greater than 30 minutes Exam Vital Signs (past 8 hours): - 11/27/23 04:00 11/27/23 04:00 11/27/23 08:00 Temperature 97.5 F L Pulse Rate 69 Respiratory Rate 16 Blood Pressure 162/68 H Pulse Oximetry 96 96 95 Oxygen Delivery Method Room Air Room Air Oxygen Flow Rate 0 11/27/23 08:00 11/27/23 08:00 Temperature 97.1 F L Pulse Rate 66 Respiratory Rate 18 16 Blood Pressure 159/62 H Pulse Oximetry 98 Oxygen Delivery Method Oxygen Flow Rate Oxygen Delivery Method Room Air Oxygen Flow Rate 0 Narrative Exam Narrative: General:? Patient is well developed and well nourished, in no distress at this time. HEENT:? Normocephalic, atraumatic, extraocular muscles intact, oral pharynx is clear and mucous membranes are moist. Neck: supple and symmetric, trachea is midline, no cervical adenopathy. Chest:? Normal AP diameter and contour without kyphoscoliosis, no tachypnea, equal chest rise bilaterally. Cardio:?RRR Musculoskeletal:? Muscle strength and tone are equal within normal limits, no deformity. Extremities: No edema or joint effusions. Neuro:? Alert and orientated x3,? sensation to touch intact in all extremities Psych:? Patient has a well-kept appearance, appropriate affect, mental status attitude thought context and judgment are appropriate for age. Objective Labs 11/27/23 05:33 11/27/23 05:33 Labs: Laboratory Results - last 24 hr 11/26/23 11/26/23 11/26/23 13:48 14:17 14:27 WBC 6.0 RBC 3.68 L Hgb 12.6 Hct 36.9 MCV 100.2 H MCH 34.3 H MCHC 34.2 RDW 13.2 Plt Count 212 Neut % (Auto) 54.1 Lymph % (Auto) 29.0 [place] % (Auto) 10.8 Eos % (Auto) 5.3 H Baso % (Auto) 0.8 Neut # (Auto) 3200 Lymph # (Auto) 1700 [place] # (Auto) 600 Eos # (Auto) 300 Baso # (Auto) 0 PT 10.2 INR 0.9 APTT 28 Sodium 131 L Potassium 4.1 Chloride 97 L Carbon Dioxide 25 BUN 11 Creatinine 0.66 Estimated GFR > 60 BUN/Creatinine Ratio 16.7 Glucose 92 Calcium 9.1 Magnesium Total Bilirubin 0.5 AST 34 ALT 23 Alkaline Phosphatase 69 Total Creatine Kinase 34 Troponin I < 0.012 Total Protein 7.1 Albumin 4.4 Globulin 2.7 Albumin/Globulin Ratio 1.6 Urine Color Yellow Urine Appearance Clear Urine pH 5.0 Ur Specific [place] <=1.005 Urine Protein Negative Urine Glucose (UA) Negative Urine Ketones Negative Urine Occult Blood Negative Urine Nitrate Negative Urine Bilirubin Negative Urine Urobilinogen 0.2 Ur Leukocyte Esterase Negative Urine RBC None seen Urine WBC None seen Ur Squamous Epith Cells None seen Urine Bacteria None seen Ur Culture Indicated? Cult not indicated Vol Urine Centrifuged 10ml (spun) U Opiates 300ng/mL cut Negative Ur Oxycodone Screen Negative Urine Methadone Screen Negative Ur Barbiturates Screen Negative U Tricyclic Antidepress Negative Ur Phencyclidine Scrn Negative Ur Amphetamines Screen Negative U Methamphetamines Scrn Negative Ur MDMA Scrn (Ecstasy) Negative U Benzodiazepines Scrn Negative Urine Cocaine Screen Negative U Marijuana (THC) Screen Negative Urine Specific [place] Ethyl Alcohol < 10 Ur Creatinine SARS-CoV-2 (PCR) Negative 11/26/23 11/27/23 14:27 05:33 WBC 4.6 RBC 3.61 L Hgb 12.5 Hct 36.5 MCV 101.0 H MCH 34.5 H MCHC 34.2 RDW 13.5 Plt Count 188 Neut % (Auto) 52.6 Lymph % (Auto) 29.3 [place] % (Auto) 10.5 Eos % (Auto) 6.5 H Baso % (Auto) 1.1 Neut # (Auto) 2400 Lymph # (Auto) 1400 [place] # (Auto) 500 Eos # (Auto) 300 Baso # (Auto) 100 PT INR APTT Sodium 133 L Potassium 4.0 Chloride 100 Carbon Dioxide 27 BUN 9 Creatinine 0.59 Estimated GFR > 60 BUN/Creatinine Ratio 15.3 Glucose 106 Calcium 8.7 Magnesium 1.7 Total Bilirubin AST ALT Alkaline Phosphatase Total Creatine Kinase Troponin I Total Protein Albumin Globulin Albumin/Globulin Ratio Urine Color Urine Appearance Urine pH Normal Ur Specific [place] Urine Protein Urine Glucose (UA) Urine Ketones Urine Occult Blood Urine Nitrate Urine Bilirubin Urine Urobilinogen Ur Leukocyte Esterase Urine RBC Urine WBC Ur Squamous Epith Cells Urine Bacteria Ur Culture Indicated? Vol Urine Centrifuged U Opiates 300ng/mL cut Ur Oxycodone Screen Urine Methadone Screen Ur Barbiturates Screen U Tricyclic Antidepress Ur Phencyclidine Scrn Ur Amphetamines Screen U Methamphetamines Scrn Ur MDMA Scrn (Ecstasy) U Benzodiazepines Scrn Urine Cocaine Screen U Marijuana (THC) Screen Urine Specific [place] Normal Ethyl Alcohol Ur Creatinine Normal SARS-CoV-2 (PCR) PFSH Medical History (Updated 11/26/23 @ 18:00 by Landon Larson DO) Hypothyroidism HTN (hypertension) Surgical History (Updated 11/26/23 @ 18:00 by Landon Larson DO) History of bilateral salpingo-oophorectomy (BSO) S/P DOROTEO (total abdominal hysterectomy) Social History (Updated 11/26/23 @ 18:01 by Landon Larson DO) household members: significant other Smoking Status: Former smoker alcohol intake: current substance use type: does not use Discharge Plan Discharge Plan Patient Disposition: Home Provider Discharge Comment: You were admitted to the hospital with a TIA. MRI negative for stroke. Recommend trying to stop estradiol, but reducing dose may be helpful as well. Please follow up with primary care provider in the next week ideally. You may need to increase your BP medications depending on trends at home. Discharge orders & Medications Prescriptions: New aspirin 81 mg Tablet,Delayed Release (Dr/Ec) 81 mg PO DAILY 90 Days Qty: 90 0RF atorvastatin 40 mg tablet 40 mg PO BEDTIME 90 Days Qty: 90 0RF Continued levothyroxine [Synthroid] 75 mcg tablet 75 mcg PO DAILY meclizine 25 mg tablet 50 mg PO DAILY PRN (Reason: dizziness) benzonatate 100 mg capsule 200 mg PO 3XD PRN (Reason: cough) estradiol 2 mg tablet 2 mg PO DAILY carvedilol 3.125 mg tablet 3.125 mg PO Q12H alprazolam 0.5 mg tablet 0.25 - 0.5 mg PO Q6H PRN (Reason: anxiety) losartan 25 mg tablet 25 mg PO DAILY Follow up/Referrals: Henrietta House, [facility] [Primary Care Provider] - Diet/Activity/Treatments Diet: Diet as Tolerated and Regular Activity: As tolerated Visit Report/Discharge Packet Stand Alone Forms: Patient Portal/API, Stroke Signs & Symptoms Discharge Data Primary Care Provider: Henrietta House Attending Provider: Landon Larson Date/Time: 11/26/23 16:59
--- NOTE | 2023-11-27 11:09 | PC.NURSE ---
Addendum entered by Janelle Bains R.N. 11/27/23 12:23: Pt ride here. Pt escorted by staff via W/C to waiting vehicle D/C in stable status. Original Note: Pt had ECHO done, saw and D/C orders received. D/C intact. Home instructions given w/understanding. Awaiting ride
--- NOTE | 2023-11-27 11:14 | CM.DANOTE ---
Initial DCP Assessment Visit Note Reviewed EMR and team rounds for pt's status updates. Met with pt at bedside to introduce self and role, pt was found to be alert/oriented and able to discuss d/c needs/preferences. She resides with her Life Partner in their own home here in [place]. Her partner will transport her home later today, she has been medically cleared for d/c. Payor: Medicare PCP: Henrietta House Pt is a 83-year-old with a PMH of hypothyroidism and hypertension presented to the ED last evening after experiencing word finding difficulty, slurring, and left arm and leg tingling symptoms that resolved just prior to her arrival to the ED. Brain imaging was negative for any abnormalities, however she is presumed to have had a TIA. She was placed in OBS for further monitoring and an MRI-MRI was negative as well. Today she is expressing feeling back to her baseline, and feels ready to return home. She will f/u OP with her PCP. Discharge Planning/Care Management CM Discharge Assessment Start: 11/27/23 11:12 Freq: Status: Active Protocol: Document 11/27/23 11:12 DPL (Rec: 11/27/23 11:13 DPL [id number]) Discharge Planning Assessment Assigned Sliding Joint Maker JUDITH Mack Advance Directives? No History Provided By Patient,Medical Record Expected Length of Stay 1 Has Patient been admitted in last 30 No days? Prior Living Arrangements House Household Members significant other Independent with ADL's Yes Is patient alert and oriented? Yes Comment N/A Caregiver for Another No Comment No identified home d/c needs at this time. Barriers to Discharge No Discharge Plan Home Transportation Arrangement Life Partner Referrals Initiated None needed Whiteboard Updated in Patient Room with Yes name and ext. # of Sliding Joint Maker Review Status In Process Please Provide Date Initial DC 11/27/23 Assessment Was Performed
== END 2023-11-27 11:35 | disposition home or self-care (01) ==
LOC: ED 15:51 → AC 16:59
PROVIDERS: Admitting Provider Internal Medicine; Emergency Provider Emergency Medicine; PCP Student in an Organized Health Care Education/Training Program; Referring Provider Emergency Medicine; Visit Provider Internal Medicine
DX: G45.9 Transient cerebral ischemic attack, unspecified (principal); R29.700 NIHSS score 0; I10 Essential (primary) hypertension; E03.9 Hypothyroidism, unspecified
CPT/HCPCS: 36415; 70450; 70496; 70498; 70551; 80048; 80053; 80305; 80320; 81001; 82550; 83735; 84484; 85025; 85610; 85730; 87635; 93005; 93306; 99285; G0378; Q9967

== ENCOUNTER 2024-06-03 10:19 | Emergency (ER) | payer MEDICARE, SELFPAY ==
[2023-11-26 17:01] VITALS: BMI 24.5
[2024-06-03] VITALS (15 sets, daily range): BP systolic 139–201; BP diastolic 63–92; PULSE 85–114; RESP 20–40; TEMP 36.7; O2SAT 90–96; BMI 23.4
--- NOTE | 2024-06-03 10:37 | EKG_ITS ---
[address] [address] Test Date: 2024-06-03 Pat Name: Rosalinda Duron Department: Room: Gender: Female Logistics Director: CASSI : 1940 Requested By: Order Number: [id number] Reading MD: Ezio Wilson Measurements Intervals [place] Rate: 96 P: 96 ID: 150 QRS: 11 QRSD: 64 T: 42 QT: 332 QTc: 419 Interpretive Statements Normal sinus rhythm Nonspecific ST abnormality Electronically Signed On 06-05-2024 7:48:32 PST by Ezio Wilson
--- NOTE | 2024-06-03 10:38 | DI.RAD.S_ITS ---
PROCEDURE: XR CHEST 1V INDICATIONS: Shortness of breath TECHNIQUE: One view of the chest was acquired. COMPARISON: None. FINDINGS: Surgical changes and devices: None. Lungs and pleura: Lungs are clear. No pleural effusions or pneumothorax. Mediastinum: Mediastinal contours appear normal. Heart size is normal. Bones and chest wall: No suspicious bony lesions. Age-appropriate bony degenerative changes are seen. Overlying soft tissues appear unremarkable. IMPRESSION: Portable chest within normal limits for age. Dictated by: Lyndon Chavarria M.D. on 06/03/2024 at 10:10 Approved by: Lyndon Chavarria M.D. on 06/03/2024 at 10:10
--- NOTE | 2024-06-03 10:51 | ED.CHESTPAIN ---
HPI - Chest Pain General Chief Complaint: Shortness of Breath/Dyspnea Stated Complaint: coughing for a wk getting worse weakness Time Seen by Provider: 06/03/24 10:51 History of Present Illness HPI narrative: Patient is a 84-year-old female with a history of asthma, hypothyroidism, hypertension, presenting from home for evaluation of cough x6 days, also stating that she is having some mild chest pain or shortness of breath associated with this, states that she has been using her rescue inhaler without much relief therefore decided come into the ED for further evaluation treatment. patient also stating that she has been having other flu-like symptoms sore throat, nasal congestion ongoing persistent for the past 6 days. She states that whenever she does take a deep breath she feels like it is worse. no trauma no falls not on any blood thinners states that was sick with similar symptoms about a week ago but he has since had complete resolution. Related Data Home Medications Medication Instructions Recorded Confirmed alprazolam 0.5 mg tablet 0.25 - 0.5 mg PO Q6H PRN anxiety 11/26/23 11/26/23 benzonatate 100 mg capsule 200 mg PO 3XD PRN cough 11/26/23 11/26/23 carvedilol 3.125 mg tablet 3.125 mg PO Q12H 11/26/23 11/26/23 estradiol 2 mg tablet 2 mg PO DAILY 11/26/23 11/26/23 levothyroxine 75 mcg tablet 75 mcg PO DAILY 11/26/23 11/26/23 (Synthroid) losartan 25 mg tablet 25 mg PO DAILY 11/26/23 11/26/23 meclizine 25 mg tablet 50 mg PO DAILY PRN dizziness 11/26/23 11/26/23 Previous Rx's Medication Instructions Recorded albuterol sulfate 1.25 mg/3 mL 2.5 mg (6 mL) inhalation TID 7 06/03/24 solution for nebulization days #126 mL albuterol sulfate 90 mcg/actuation 2 inh inhalation Q6H PRN shortness 06/03/24 breath activated powder inhaler of breath or wheezing #1 ea prednisone 20 mg tablet 40 mg (2 x 20 mg) PO DAILY 5 days 06/03/24 #10 tabs Allergies Allergy/AdvReac Type Severity Reaction Status Date / Time grass pollen Allergy Verified 11/26/23 15:56 Review of Systems Review of Systems Narrative: General: Denies fever, chills, weight loss HEENT: Denies headache, eye drainage, eye irritation, head trauma, sore throat, voice change Cardiovascular: positivechest pain, denies palpitations tachycardia Respiratory: positive shortness of breath, cough, wheeze, stridor GI/: Denies any abdominal pain, nausea, vomiting, diarrhea, bright red blood per rectum, melanotic stools, urinary frequency, urinary retention, dysuria, hematuria MSK: Denies any joint pain, muscle pains, swelling Skin: Denies any rashes, lesions, discoloration Neuro: Denies any headache, lightheadedness, dizziness, fainting, weakness Psych: Denies SI/HI Patient History Medical History (Updated 06/03/24 @ 14:56 by Landon Peña DO) Hypothyroidism HTN (hypertension) Surgical History (Updated 11/26/23 @ 18:00 by Landon Larson DO) History of bilateral salpingo-oophorectomy (BSO) S/P DOROTEO (total abdominal hysterectomy) Social History (Updated 11/26/23 @ 18:01 by Landon Larson DO) household members: significant other Smoking Status: Former smoker alcohol intake: current substance use type: does not use Smoking Status: Former smoker Substance Use Type: does not use Exam Narrative Exam Narrative: General: Cooperative, comfortable, well-developed, not in acute distress HEENT: Normocephalic, atraumatic, PERRLA, normal sclera, eyelids normal, Neck: Active full range of motion, atraumatic Chest: Normal to inspection, negative crepitus, no overlying erythema ecchymosis Respiratory: Normal respiratory effort, not in acute respiratory distress, clear to auscultation bilaterally negative cough, mild expiratory wheeze expiratory upper lung bacon, no tachypnea, rhonchi, rales Cardiology: Regular rate rhythm negative gallop, murmur, rubs GI/: Normal to inspection, soft, nonrigid, no tenderness to palpation, exam deferred MSK: Full range of active range of motion of all 4 extremities, atraumatic Skin: No rashes lesions noted Neuro: Alert awake oriented x3, moves all 4 extremities spontaneously, cranial nerves intact, able to answer all questions appropriately follows commands appropriately Psych: Cooperative, negative suicidal or homicidal ideations Initial Vital Signs Initial Vital Signs: Vital Signs Temperature 98.0 F 06/03/24 10:34 Pulse Rate 104 H 06/03/24 10:34 Respiratory Rate 20 06/03/24 10:34 Blood Pressure 179/92 H 06/03/24 10:34 Pulse Oximetry 94 06/03/24 10:34 Oxygen Delivery Method Room Air 06/03/24 10:34 Scores HEART Score Heart Score history: Slightly Suspicious Heart Score EKG: Normal Heart Score Age: > or = 65 years old Heart Score risk factors: 1-2 risk factors Heart Score troponin: < or = to normal limit Heart Score Total: 3 Course Orders Ordered: ED Orders 06/03/24 10:38 XR chest 1V Stat EKG-12 Lead Stat Measure peak expiratory flow ONCE RT Consult Eval and Treat NOW 06/03/24 11:00 Complete Blood Count AUTO DIFF Stat Comprehensive Metabolic Panel Stat D Dimer Stat NT-proBNP (BNP-Adult 18+) Stat Prothrombin Time INR Stat Troponin I Stat 06/03/24 11:10 Covid-19 + FLU A/B + RSV - PCR Stat Lactate (Lactic Acid) Stat 06/03/24 14:24 Strep Grp A by PCR Rapid Stat Discontinued Medications Albuterol/Ipratropium (Albuterol/Ipratropium 3 Ml Ampul) 3 ml INH NOW ONE Stop: 06/03/24 11:05 Last Admin: 06/03/24 11:14 Dose: 3 ml Documented By: SAT Prednisone (Prednisone 20 Mg Tablet) 60 mg PO NOW ONE Stop: 06/03/24 11:05 Last Admin: 06/03/24 11:15 Dose: 60 mg Documented By: TC Vital Signs Vital signs: Vital Signs - 8 hr 06/03/24 10:34 06/03/24 11:15 Temperature 98.0 F Pulse Rate 104 H 85 Respiratory Rate 20 20 Blood Pressure 179/92 H Pulse Oximetry 94 94 Oxygen Delivery Method Room Air Room Air MDM - Chest Pain Differential Diagnosis Differential diagnosis: Likely atypical chest pain, st elevation myocardial infarction, costochondritis, chest pain and other ( COVID, flu, electrolyte abnormality) Lab Data 06/03/24 11:00 06/03/24 11:00 Labs: Lab Results 06/03/24 06/03/24 06/03/24 Range/Units 11:00 11:10 14:24 WBC 8.5 (4.5-11.0) X10^3/uL RBC 3.84 L (4.0-5.2) X10^6/uL Hgb 13.1 (12.0-16.0) g/dL Hct 38.6 (36-46) % MCV 100.5 H (80-100) fL MCH 34.0 (26-34) PG MCHC 33.9 (30-36) % RDW 13.6 (11.6-14.8) % Plt Count 211 (150-400) X10^3/uL Neut % (Auto) 71.7 (50-75) % Lymph % (Auto) 14.5 L (25-40) % [place] % (Auto) 10.6 (3-14) % Eos % (Auto) 2.8 (2-4) % Baso % (Auto) 0.4 (0-2) % Neut # (Auto) 6100 (1709-7781) /uL Lymph # (Auto) 1200 (5492-3526) /uL [place] # (Auto) 900 (0-900) /uL Eos # (Auto) 200 (0-450) /uL Baso # (Auto) 0 (0-100) /uL PT 10.6 (9.4-12.5) SECONDS INR 0.9 (0.9-1.3) D-Dimer 480 (<500) ng/ml Sodium 133 L (137-145) mmol/L Potassium 3.9 (3.4-5.1) mmol/L Chloride 100 (98-107) mmol/L Carbon Dioxide 24 (22-32) mmol/L BUN 10 (7-17) mg/dL Creatinine 0.78 (0.52-1.04) mg/dL Estimated GFR > 60 (>60) mL/min BUN/Creatinine Ratio 12.8 (6-22) Glucose 115 H (80-110) mg/dL Lactate 2.0 (0.7-2.1) mmol/L Calcium 9.5 (8.4-10.2) mg/dL Total Bilirubin 1.0 (0.2-1.3) mg/dL AST 50 H (14-36) IU/L ALT 42 H (<35) IU/L Alkaline Phosphatase 96 (38-126) U/L Troponin I < 0.012 (0.01-0.034) ng/mL NT-Pro-B Natriuret Pep 575 H (<450) pg/mL Total Protein 7.0 (6.3-8.2) g/dL Albumin 4.3 (3.5-5.0) g/dL Globulin 2.7 (1.7-4.1) g/dL Albumin/Globulin Ratio 1.6 (1.0-2.8) SARS-CoV-2 (PCR) Negative (Negative) Influenza A (RT-PCR) Flu a negative (NEGATIVE) Influenza B (RT-PCR) Flu b negative (NEGATIVE) RSV (PCR) Negative (Negative) Group A Strep (PCR) Negative (Negative) Imaging Data Chest x-ray: Radiologist's Impression: [address] [address] XRay Report Signed Patient: Rosalinda Duron MR#: [id number] : 1940 Acct:[id number] Age/Sex: 84 / F Date of Service: 06/03/24 Loc: ED Accession Number: [id number] Procedure: XR chest 1V Ordering Provider: Landon Peña D.O. PROCEDURE: XR CHEST 1V INDICATIONS: Shortness of breath TECHNIQUE: One view of the chest was acquired. COMPARISON: None. FINDINGS: Surgical changes and devices: None. Lungs and pleura: Lungs are clear. No pleural effusions or pneumothorax. Mediastinum: Mediastinal contours appear normal. Heart size is normal. Bones and chest wall: No suspicious bony lesions. Age-appropriate bony degenerative changes are seen. Overlying soft tissues appear unremarkable. IMPRESSION: Portable chest within normal limits for age. ECG Data Interpretation: EKG interpreted ED physician sinus at 96 beats per minute, QTC 419, normal axis, nonspecific ST changes, no STEMI MDM Narrative Medical decision making narrative: patient is a 84-year-old female with a history of hypertension hypothyroidism asthma not requiring supplemental oxygen at baseline only uses rescue inhaler as needed, presents for flu-like symptoms, cough, shortness of breath, wheeze, chest pain, sore throat ongoing persistent for the past 6 days without any resolution with [id number] medication/treatment. EKG nonischemic in nature no arrhythmia.Patient with heart score 3, did receive steroids and breathing treatment here with complete resolution of her symptoms, symptoms more likely secondary to acute asthma exacerbation. chest x-ray without any signs of pneumonia he other acute cardiopulmonary abnormalities. patient without any leukocytosis, strep negative, COVID flu negative, trop negative. We will be sent home with steroids albuterol rescue inhaler and nebulizer solution Discharge Plan Departure Patient Disposition: Home Clinical Impression: Asthma with exacerbation Activity Restrictions/Additional Instructions: Please read the discharge instructions sheet carefully and bring all papers to all doctor follow-up visits, as it may contain information that your doctor may want to see. Disease processes change and evolve, if your symptoms worsen or if you develop any new symptoms that are concerning to you please return for evaluation. Your evaluation today does not show any evidence of any life-threatening/serious illnesses requiring admission to the hospital or surgery. Please follow-up with your doctor for re-evaluation in approximately 1 day. Seek immediate medical attention for any worrisome symptoms. Prescriptions: New prednisone 20 mg tablet 40 mg PO DAILY 5 Days Qty: 10 0RF albuterol sulfate 1.25 mg/3 mL solution for nebulization 2.5 mg inhalation TID 7 Days Qty: 126 0RF albuterol sulfate 90 mcg/actuation aerosol powdr breath activated 2 inh inhalation Q6H PRN (Reason: shortness of breath or wheezing) Qty: 1 2RF No Action levothyroxine [Synthroid] 75 mcg tablet 75 mcg PO DAILY meclizine 25 mg tablet 50 mg PO DAILY PRN (Reason: dizziness) benzonatate 100 mg capsule 200 mg PO 3XD PRN (Reason: cough) estradiol 2 mg tablet 2 mg PO DAILY carvedilol 3.125 mg tablet 3.125 mg PO Q12H alprazolam 0.5 mg tablet 0.25 - 0.5 mg PO Q6H PRN (Reason: anxiety) losartan 25 mg tablet 25 mg PO DAILY Referrals: Henrietta House PA-C [Primary Care Provider] - Stand Alone Forms: Patient Portal/API/Survey
[2024-06-03 11:08] LABS: Add Manual Diff / Slide Review NO; Basophils Absolute Auto 0 /uL (0-100); Basophils Percent Auto 0.4 % (0-2); Eosinophils Absolute Auto 200 /uL (0-450); Eosinophils Percent Auto 2.8 % (2-4); Hematocrit 38.6 % (36-46); Hemoglobin 13.1 g/dL (12.0-16.0); Lymphocytes Absolute Auto 1200 /uL (1100-4500); Lymphocytes Percent Auto 14.5 % (25-40); Mean Corpuscular HGB Conc 33.9 % (30-36); Mean Corpuscular Volume 100.5 fL (80-100); Monocytes Absolute Auto 900 /uL (0-900); Monocytes Percent Auto 10.6 % (3-14); Neutrophils Absolute Auto 6100 /uL (1500-7000); Neutrophils Percent Auto 71.7 % (50-75); Platelet Count 211 X10^3/uL (150-400); Red Blood Cell Count 3.84 X10^6/uL (4.0-5.2); Red Cell Distribution Width 13.6 % (11.6-14.8); White Blood Cell Count 8.5 X10^3/uL (4.5-11.0)
[2024-06-03] MEDS: ALBUTEROL/IPRATROPIUM 3 ML AMPUL INH (11:14)
[2024-06-03] MEDS: predniSONE 20 MG TABLET 60 MG PO (11:15)
[2024-06-03 11:20] LABS: INR 0.9 (0.9-1.3); Prothrombin Time 10.6 SECONDS (9.4-12.5)
[2024-06-03 11:24] LABS: Alanine Aminotransferase 42 IU/L (<35); Albumin 4.3 g/dL (3.5-5.0); Albumin Globulin Ratio 1.6 (1.0-2.8); Alkaline Phosphatase 96 U/L (38-126); Aspartate Aminotransferase 50 IU/L (14-36); BUN Creatinine Ratio 12.8 (6-22); Blood Urea Nitrogen 10 mg/dL (7-17); Calcium 9.5 mg/dL (8.4-10.2); Carbon Dioxide 24 mmol/L (22-32); Chloride 100 mmol/L (98-107); Estimated Glomerular Filt Rate > 60 mL/min (>60); Globulin 2.7 g/dL (1.7-4.1); Glucose 115 mg/dL (80-110); HEMOLYSIS < 15 (0-50); Potassium 3.9 mmol/L (3.4-5.1); Sodium 133 mmol/L (137-145)
[2024-06-03 11:28] LABS: D Dimer 480 ng/ml (<500)
[2024-06-03 11:36] LABS: NT-proBNP (BNP-Adult 18+) 575 pg/mL (<450); Troponin I < 0.012 ng/mL (0.01-0.034)
[2024-06-03 11:55] LABS: Influenza A - CEPHEID Flu A NEGATIVE (NEGATIVE); Influenza B - CEPHEID Flu B NEGATIVE (NEGATIVE); Respiratory Syncytial Virus Negative (Negative)
[2024-06-03 12:37] LABS: COVID-19 CEPHEID 4-PLEX PCR Negative (Negative)
[2024-06-03 14:36] LABS: Strep Grp A by PCR Rapid NEGATIVE (Negative)
== END 2024-06-03 15:06 | disposition home or self-care (01) ==
PROVIDERS: Emergency Provider Student in an Organized Health Care Education/Training Program; PCP Student in an Organized Health Care Education/Training Program
DX: J45.901 Unspecified asthma with (acute) exacerbation (principal); R07.9 Chest pain, unspecified; R06.02 Shortness of breath; R05.9 Cough, unspecified
CPT/HCPCS: 0241U; 36415; 71045; 80053; 83605; 83880; 84484; 85025; 85379; 85610; 87651; 93005; 94640; 99284

== ENCOUNTER → 2025-06-26 14:33 | Outpatient (CLI) | payer MEDICARE, SELFPAY ==
[2023-11-26 17:01] VITALS: BMI 24.5
--- NOTE | 2025-06-26 14:39 | DI.RAD.S_ITS ---
PROCEDURE: XR DEXA AXIAL SKELETON INDICATIONS: Screening osteoporosis COMPARISON: [facility], CR, XR DEXA AXIAL SKELETON, 05/19/2023, 11:43. FINDINGS: Lumbar Spine: Bone mineral density 1.107 g/cm2, T score 0.5, prior T-score of 0.6. Left Femoral Neck: Bone mineral density 0.687 g/cm2, T score -1.5. Left Hip: Bone mineral density 0.912 g/cm2, T score -0.2, prior T-score of -0.4. Fracture Risk Calculation (when applicable): 10-year fracture risk of a major osteoporotic fracture 12 percent and of a hip fracture 3.3 percent. (T score greater or equal to -1.0 to: NORMAL) (T score from -1.1 to -2.4: OSTEOPENIA) (T score less than or equal to -2.5: OSTEOPOROSIS) IMPRESSION: Osteopenia with high risk of hip fracture per FRAX at 3.3 percent in the next 10 years. Follow-up guidelines as follows: Osteoporosis: Consider a repeat DEXA and Vertebral Fracture Assessment (VFA) exam in 2 years or sooner if medically necessary, to reassess this patient's status. Osteopenia: Consider a repeat DEXA in 2-3 years to reassess this patient's status, or if there is a new clinical indication. Normal: Consider a repeat DEXA in 5 years or sooner, or if there is a new clinical indication. All treatment decisions require clinical judgment and consideration of individual patient factors, including patient preferences, comorbidities, previous drug use, risk factors not captured in the FRAX model (e.g., frailty, falls, vitamin D deficiency, increased bone turnover, interval significant decline in bone density ) and possible under- or over-estimation of fracture risk by FRAX. In addition, the NOF Guide recommends that FDA-approved medical therapies be considered in postmenopausal women and men age >= 50 years with a: * Hip or vertebral (clinical or morphometric) fracture * T-score of <=-2.5 at the spine or hip * Ten-year fracture probability by FRAX of >= 3% for hip fracture or >=20% for major osteoporotic fracture. Dictated by: Erlin Gaona M.D. on 06/29/2025 at 11:01 Approved by: Erlin Gaona M.D. on 06/29/2025 at 11:03
== END ==
LOC: RAD 14:39
PROVIDERS: PCP Family Medicine; Referring Provider Family Medicine; Visit Provider Family Medicine
DX: M85.852 Other specified disorders of bone density and structure, left thigh (principal)
CPT/HCPCS: 77080